=== PATIENT | female | born 1940 | race Caucasian/White ===

== ENCOUNTER → 2017-01-08 | Outpatient (CLI) | payer MEDICARE, BC ==
--- NOTE | 2017-01-08 09:44 | BD ---
EXAMINATION TYPE: MG DEXA axial skeleton. DATE OF EXAM: 01/08/2017 8:44 AM CLINICAL HISTORY: Height: 61.25 Weight: 178 Comparison: Prior DEXA bone scan February 19, 2014 FRAX RISK QUESTIONS: Alcohol (3 or more units per day): no Family History (Parent hip fracture): no Glucocorticoids (More than 3mos): no (Ex: prednisone, prednisolone, methylprednisolone, dexamethasone, and hydrocortisone). History of Fracture in Adulthood: no Secondary Osteoporosis: 1. Type 1 Diabetes: no 2. Hyperthyroidism: no 3. Menopause before 45: yes, total hysterectomy age 38 4. Malnutrition: no 5. Chronic liver disease: no Rheumatoid Arthritis: not rheumatoid Current Tobacco Use: no RISK FACTORS HISTORY OF: History of Fracture: no Family History of Osteoporosis: unsure Drink Alcohol: "twice a year" Active: no Diet low in dairy products/other sources of calcium: NO Postmenopausal woman: yes Take estrogen and/or progesterone medications: not now How long: hormonal contraceptives 6 years, Estrogen about 6 months Lost more than 2 inches in height since high school: unsure, states was perhaps 64 inches tall at one time Frequent falls: no Poor Health: no Hyperparathyroidism: no Adrenal Insufficiency: no MEDICATIONS: Prednisone or other steroids: no Thyroid Medications: yes Which medication: Levothyroxine How Long: about 10 years Osteoporosis Medications: no Additional Medications: heart meds, blood pressures meds, Lipitor EXAM MEASUREMENTS: Bone mineral densitometry was performed using the NORCAT System. Bone mineral density as measured about the Lumbar spine is: ----- L1-L4(G/cm2): 1.297 T Score Values are as follows: ----- L2: 0.3 ----- L3: 1.7 ----- L4: 0.5 ----- L1-L4: 1.0 Bone mineral density has: Increased 3.7% since study of: 02/19/2014 Bone mineral density about the R hip (g/cm2): 0.846 Bone mineral density about the L hip (g/cm2): 0.859 T Score values are as follows: -----R Neck: -1.4 -----L Neck: -1.3 -----R Intertrochanter: -1.5 -----L Intertrochanter: -1.4 Bone mineral density has: Decreased -1.6% since study of: 02/19/2014 IMPRESSION: Osteopenia (T Score between -2.5 and -1 as noted by T score values in the Bilateral Hips is redemons trated. Bone density fairly stable from prior. There is slightly increased risk of fracture and the p atient may be considered for treatment. Re-Screen 1-2 years. NOTE: T-SCORE=SD OF THE YOUNG ADULT MEAN.
--- NOTE | 2017-01-09 07:39 | MM ---
Reason for exam: screening (asymptomatic). Last mammogram was performed 2 years and 4 months ago. History: Patient is postmenopausal. Took hormonal contraceptives for 6 years. Took estrogen for 6 months. Physical Findings: A clinical breast exam by your physician is recommended on an annual basis and results should be correlated with mammographic findings. MG 3D Screening Mammo W/Cad Bilateral CC and MLO view(s) were taken. Prior study comparison: September 08, 2014, right breast MG diagnostic mammo RT w CAD. March 04, 2014, right breast MG work up mamm w CAD RT. There are scattered fibroglandular densities. Finding: There are typically benign round calcifications in the right breast. There is a chronic nodularity in the right axilla. There is no dominant lesion. ASSESSMENT: Benign, BI-RAD 2 RECOMMENDATION: Routine screening mammogram of both breasts in 1 year.
== END | disposition home or self-care (01) ==
LOC: RADMAMWWP 07:49
PROVIDERS: ATTEND Family Medicine
DX: Z12.31 Encounter for screening mammogram for malignant neoplasm of breast (principal); Z13.820 Encounter for screening for osteoporosis; M85.80 Other specified disorders of bone density and structure, unspecified site
CPT/HCPCS: 77080; 77063; G0202

== ENCOUNTER 2017-08-14 10:12 | Inpatient (IN) | payer MEDICARE, BC ==
[2017-08-14 10:43] LABS: Basophils % (A) 0 %; CHCM 33.1; Eosinophils # (A) 0.2 k/uL (0-0.7); Eosinophils % (A) 3 %; HCT 37.5 % (34.0-46.0); HDW 2.49; HGB 12.1 gm/dL (11.4-16.0); Luc # (Auto) 0.07; Luc % (Auto) 1; Lymphocytes # (A) 0.5 k/uL (1.0-4.8); Lymphocytes % (A) 7 %; MCH 28.3 pg (25.0-35.0); MCHC 32.2 g/dL (31.0-37.0); MCV 88.1 fL (80.0-100.0); Mean Platelet Volume 7.7; Monocytes # (A) 0.4 k/uL (0-1.0); Monocytes % (A) 4 %; Neutrophils # (A) 6.9 k/uL (1.3-7.7); Neutrophils % (A) 85 %; RBC 4.26 m/uL (3.80-5.40); RDW 15.5 % (11.5-15.5); WBC 8.2 k/uL (3.8-10.6); WBC (Perox) 8.45
[2017-08-14 10:53] LABS: ALT 50 U/L (9-52); AST 49 U/L (14-36); Alkaline Phosphatase 70 U/L (38-126); Anion Gap 11 mmol/L; Blood Urea Nitrogen 16 mg/dL (7-17); Calcium 8.8 mg/dL (8.4-10.2); Carbon Dioxide 22 mmol/L (22-30); Chloride 99 mmol/L (98-107); Glucose 130 mg/dL (74-99); Magnesium 1.8 mg/dL (1.6-2.3); Non-African American GFR(MDRD) >60 (>60 ml/min/1.73 sqM); Phosphorous 4.4 mg/dL (2.5-4.5); Potassium 4.5 mmol/L (3.5-5.1); Sodium 132 mmol/L (137-145); Total Bilirubin 0.5 mg/dL (0.2-1.3); Total Protein 6.6 g/dL (6.3-8.2)
--- NOTE | 2017-08-14 10:54 | XR ---
EXAMINATION TYPE: XR chest 2V DATE OF EXAM: 08/14/2017 COMPARISON: 01/23/2015 HISTORY: Weakness. TECHNIQUE: Frontal and lateral views of the chest are obtained. FINDINGS: Interlobular septal thickening and interstitial pulmonary edema are seen. Heart is enlarge d. No pleural effusions are evident. Multilevel degenerative changes of thoracic spine and extensive glenohumeral arthropathy are present. IMPRESSION: Moderate interstitial pulmonary edema, likely on the basis of decompensated congestive h eart failure.
[2017-08-14 10:55] LABS: INR 1.1 (<1.2); Partial Thromboplastin Time 22.8 sec (22.0-30.0); Prothrombin Time 10.8 sec (9.0-12.0)
[2017-08-14 11:03] LABS: Creatine Kinase 114 U/L (30-135)
[2017-08-14 11:15] LABS: Troponin I <0.012 ng/mL (0.000-0.034)
[2017-08-14 11:19] LABS: Creatine Kinase MB 3.3 ng/mL (0.0-2.4)
--- NOTE | 2017-08-14 11:27 | ED ---
General Adult HPI - General Chief complaint: Shortness of Breath Stated complaint: Shortness of Breath Time Seen by Provider: 08/14/17 10:17 Source: EMS, RN notes reviewed, old records reviewed Mode of arrival: EMS Limitations: no limitations - History of Present Illness Initial comments: This is a 77-year-old female to the ER for evaluation of significant shortness of breath. Patient is a history of heart disease and asked history of smoking. Patient states he has had significant shortness of breath that began while she was doing some errands this morning. Has persisted to today with no chest pain or shortness of breath. Patient is brought in by EMS and states. Patient denies any travel history, no recent hospitalizations. Patient does admit that this is the worse her breathing has been - Related Data Home Medications Medication Instructions Recorded Confirmed Aspirin 325 mg PO DAILY 01/23/15 08/14/17 Atorvastatin [Lipitor] 40 mg PO DAILY 01/23/15 08/14/17 Levothyroxine Sodium [Synthroid] 137 mcg PO DAILY 01/23/15 08/14/17 Carvedilol [Carvedilol] 25 mg PO BID 08/14/17 08/14/17 Losartan [Cozaar] 25 mg PO BID 08/14/17 08/14/17 Vit A/Vit C/Vit E/Zinc/Copper 1 cap PO BID-W/MEALS@08/14/17 08/14/17 [ICAPS SOFTGEL] Allergies Allergy/AdvReac Type Severity Reaction Status Date / Time Penicillins Allergy Anaphylaxis Verified 08/14/17 10:34 hydralazine AdvReac Nausea & Verified 08/14/17 10:34 Vomiting Review of Systems ROS Statement: Those systems with pertinent positive or pertinent negative responses have been documented in the HPI. ROS Other: All systems not noted in ROS Statement are negative. Past Medical History Past Medical History: Heart Failure, Hypertension, Thyroid Disorder Additional Past Medical History / Comment(s): bundle branch block, 10% function on left side of heart per pt, arrythmia - pt unsure of what type History of Any Multi-Drug Resistant Organisms: None Reported Past Surgical History: Appendectomy, Hysterectomy, Orthopedic Surgery Additional Past Surgical History / Comment(s): fibroid and endometrial surgeries before hyst, sakina cataracts with implants Past Anesthesia/Blood Transfusion Reactions: No Reported Reaction Past Psychological History: No Psychological Hx Reported Smoking Status: Former smoker Past Alcohol Use History: None Reported Past Drug Use History: None Reported - Past Family History Father Family Medical History: Congestive Heart Failure (CHF) General Exam Limitations: no limitations General appearance: alert, in no apparent distress, anxious Head exam: Present: atraumatic, normocephalic, normal inspection Eye exam: Present: normal appearance, PERRL, EOMI. Absent: scleral icterus, conjunctival injection, periorbital swelling ENT exam: Present: normal exam, mucous membranes moist Neck exam: Present: normal inspection. Absent: tenderness, meningismus, lymphadenopathy Respiratory exam: Present: normal lung sounds bilaterally, wheezes, rales, accessory muscle use, decreased breath sounds, prolonged expiratory. Absent: respiratory distress, rhonchi, stridor Cardiovascular Exam: Present: regular rate, normal rhythm, normal heart sounds. Absent: systolic murmur, diastolic murmur, rubs, gallop, clicks GI/Abdominal exam: Present: soft, normal bowel sounds. Absent: distended, tenderness, guarding, rebound, rigid Extremities exam: Present: normal inspection, full ROM, normal capillary refill. Absent: tenderness, pedal edema, joint swelling, calf tenderness Back exam: Present: normal inspection Neurological exam: Present: alert, oriented X3, CN II-XII intact Psychiatric exam: Present: normal affect, normal mood Skin exam: Present: warm, dry, intact, normal color. Absent: rash Course Vital Signs 08/14/17 08/14/17 10:18 10:58 Temperature 98.3 F Pulse Rate 74 62 Respiratory 17 16 Rate Blood Pressure 140/74 122/62 O2 Sat by Pulse 93 L 98 Oximetry - Reevaluation(s) Reevaluation #1: 08/14/17 11:49 Patient is improved after initial breathing treatment, patient has no history of CHF with low ejection fraction, medical record is reviewed EKG Findings - EKG Comments: EKG Findings:: EKG shows sinus rhythm rate of 65, MA 132, QRS 142, QTc 468 Medical Decision Making - Medical Decision Making 77 female in the ER for evaluation of shortness of breath, patient's chest x- ray positive for CHF, edema. Patient also did have improvement with breathing treatments we will continue those. Patient will benefit for diuresis and cardiology evaluation - Lab Data Result diagrams: 08/14/17 10:15 08/14/17 10:15 Lab Results 08/14/17 08/14/17 08/14/17 Range/Units 10:15 10:15 10:15 WBC 8.2 (3.8-10.6) k/uL RBC 4.26 (3.80-5.40) m/uL Hgb 12.1 (11.4-16.0) gm/dL Hct 37.5 (34.0-46.0) % MCV 88.1 (80.0-100.0) fL MCH 28.3 (25.0-35.0) pg MCHC 32.2 (31.0-37.0) g/dL RDW 15.5 (11.5-15.5) % Plt Count 242 (150-450) k/uL Neutrophils % 85 % Lymphocytes % 7 % Monocytes % 4 % Eosinophils % 3 % Basophils % 0 % Neutrophils # 6.9 (1.3-7.7) k/uL Lymphocytes # 0.5 L (1.0-4.8) k/uL Monocytes # 0.4 (0-1.0) k/uL Eosinophils # 0.2 (0-0.7) k/uL Basophils # 0.0 (0-0.2) k/uL PT (9.0-12.0) sec INR (<1.2) APTT (22.0-30.0) sec Sodium 132 L (137-145) mmol/L Potassium 4.5 (3.5-5.1) mmol/L Chloride 99 (98-107) mmol/L Carbon Dioxide 22 (22-30) mmol/L Anion Gap 11 mmol/L BUN 16 (7-17) mg/dL Creatinine 0.62 (0.52-1.04) mg/dL Est GFR (MDRD) Af Amer >60 (>60 ml/min/1.73 sqM) Est GFR (MDRD) Non-Af >60 (>60 ml/min/1.73 sqM) Glucose 130 H (74-99) mg/dL Calcium 8.8 (8.4-10.2) mg/dL Phosphorus 4.4 (2.5-4.5) mg/dL Magnesium 1.8 (1.6-2.3) mg/dL Total Bilirubin 0.5 (0.2-1.3) mg/dL AST 49 H (14-36) U/L ALT 50 (9-52) U/L Alkaline Phosphatase 70 (38-126) U/L Total Creatine Kinase 114 (30-135) U/L CK-MB (CK-2) 3.3 H* (0.0-2.4) ng/mL CK-MB (CK-2) Rel Index 2.9 Troponin I <0.012 (0.000-0.034) ng/mL NT-Pro-B Natriuret Pep pg/mL Total Protein 6.6 (6.3-8.2) g/dL Albumin 3.7 (3.5-5.0) g/dL 08/14/17 08/14/17 Range/Units 10:15 10:15 WBC (3.8-10.6) k/uL RBC (3.80-5.40) m/uL Hgb (11.4-16.0) gm/dL Hct (34.0-46.0) % MCV (80.0-100.0) fL MCH (25.0-35.0) pg MCHC (31.0-37.0) g/dL RDW (11.5-15.5) % Plt Count (150-450) k/uL Neutrophils % % Lymphocytes % % Monocytes % % Eosinophils % % Basophils % % Neutrophils # (1.3-7.7) k/uL Lymphocytes # (1.0-4.8) k/uL Monocytes # (0-1.0) k/uL Eosinophils # (0-0.7) k/uL Basophils # (0-0.2) k/uL PT 10.8 (9.0-12.0) sec INR 1.1 (<1.2) APTT 22.8 (22.0-30.0) sec Sodium (137-145) mmol/L Potassium (3.5-5.1) mmol/L Chloride (98-107) mmol/L Carbon Dioxide (22-30) mmol/L Anion Gap mmol/L BUN (7-17) mg/dL Creatinine (0.52-1.04) mg/dL Est GFR (MDRD) Af Amer (>60 ml/min/1.73 sqM) Est GFR (MDRD) Non-Af (>60 ml/min/1.73 sqM) Glucose (74-99) mg/dL Calcium (8.4-10.2) mg/dL Phosphorus (2.5-4.5) mg/dL Magnesium (1.6-2.3) mg/dL Total Bilirubin (0.2-1.3) mg/dL AST (14-36) U/L ALT (9-52) U/L Alkaline Phosphatase (38-126) U/L Total Creatine Kinase (30-135) U/L CK-MB (CK-2) (0.0-2.4) ng/mL CK-MB (CK-2) Rel Index Troponin I (0.000-0.034) ng/mL NT-Pro-B Natriuret Pep 2080 pg/mL Total Protein (6.3-8.2) g/dL Albumin (3.5-5.0) g/dL - Radiology Data Radiology results: report reviewed (Chest x-ray is positive for CHF), image reviewed Disposition Clinical Impression: Congestive heart failure, Acute pulmonary edema, Acute exacerbation of chronic obstructive airways disease Disposition: ADMITTED IP TO THIS HOSP Condition: Fair Referrals: Johanne Anthony DO [Primary Care Provider] - 1-2 days
[2017-08-14] MEDS: FUROSEMIDE 10 MG/ML 4 ML VIAL IV SCH ×2 (13:34→21:14)
[2017-08-14] MEDS: CARVEDILOL 3.125 MG TAB PO SCH (17:12)
[2017-08-14] MEDS: VIT A,C & E-LUTEIN-MINERALS 1 EACH TAB PO SCH (17:12)
[2017-08-14] MEDS ORDERED: HEPARIN SODIUM,PORCINE 5,000 UNIT/ML 1 ML VIAL SQ SCH (21:00)
[2017-08-14 21:08] LABS: Appearance,Urine Clear (Clear); Bilirubin,Urine Negative (Negative); Glucose,Urine (UA) Negative (Negative); Ketones,Urine Negative (Negative); Leukocyte Esterase,Urine Negative (Negative); Nitrite,Urine Negative (Negative); PH, Urine 6.5 (5.0-8.0); Protein,Urine Negative (Negative); Specific Gravity,Urine 1.009 (1.001-1.035); UA Billing (MACRO vs. MICRO) CHEM; Urobilinogen,Urine <2.0 mg/dL (<2.0)
--- NOTE | 2017-08-14 23:07 | P.HPIM ---
History of Present Illness H&P Date: 08/14/17 Chief Complaint: Shortness of breath Patient is a 77-year-old female with a known history of hypertension, hypothyroidism and nonischemic cardiomyopathy ejection fraction 35% and history of cardiac catheterization who follows with Dr. Gonzales as an outpatient came to ER with complaints of worsening short of breath and weight gain for the past 2 to 3 days. Patient's short of breath got worse and this morning and was brought to the hospital by EMS. Patient denied any chest pain. No nausea vomiting abdominal pain. Patient says that she had echocardiogram done a few months back. Patient denied any nausea vomiting or abdominal pain. Denied any recent illnesses. No recent travel. Chest x-ray showed moderate pulmonary edema. EKG showed sinus rhythm with occasional PVCs. Review of Systems Constitutional: Patient denies any fever or chills . No generalized weakness or weight loss. Patient does have weight gain Abdomen: Patient denied nausea vomiting and diarrhea and abdominal pain. Cardiovascular: Patient denied any chest pain. Patient does have shortness of breath and orthopnea. Respiratory: patient denied any cough is from production. Neurologic: Patient denied any numbness or tingling headache. Musculoskeletal: Patient denies any complaints of joint swelling or deformity. Skin: Negative Psychiatric: Negative Endocrine: No heat or cold intolerance. No recent weight gain. Genitourinary: No dysuria or hematuria. All other 14 point ROS negative except the above Past Medical History Past Medical History: Heart Failure, Eye Disorder, Hyperlipidemia, Hypertension , Osteoarthritis (OA), Thyroid Disorder Additional Past Medical History / Comment(s): Nonischemic cardiomyopathy, bundle branch block, arthritis especially in bilateral knees, macular degeneration bilaterally, hypothyroid. History of Any Multi-Drug Resistant Organisms: None Reported Past Surgical History: Appendectomy, Heart Catheterization, Hysterectomy, Orthopedic Surgery Additional Past Surgical History / Comment(s): D&C/endometrial surgery for fibroids then total hysterectomy, bilateral cataract removal with lens implants , colonoscopy-normal, L knee arthroscopic surgery for tendon repair. Past Anesthesia/Blood Transfusion Reactions: No Reported Reaction Smoking Status: Former smoker - Past Family History Mother Family Medical History: Cancer Additional Family Medical History / Comment(s): Mother of colon cancer at the age of 58yrs. Father Family Medical History: Congestive Heart Failure (CHF), Hypertension Additional Family Medical History / Comment(s): Father had an enlarged heart. He of a CVA at the age of 72 yrs. Medications and Allergies Home Medications Medication Instructions Recorded Confirmed Type Aspirin 325 mg PO DAILY 01/23/15 08/14/17 History Atorvastatin [Lipitor] 40 mg PO DAILY 01/23/15 08/14/17 History Levothyroxine Sodium [Synthroid] 137 mcg PO DAILY 01/23/15 08/14/17 History Carvedilol [Carvedilol] 25 mg PO BID 08/14/17 08/14/17 History Losartan [Cozaar] 25 mg PO BID 08/14/17 08/14/17 History Vit A/Vit C/Vit E/Zinc/Copper 1 cap PO BID-W/MEALS@08/14/17 08/14/17 History [ICAPS SOFTGEL] Allergies Allergy/AdvReac Type Severity Reaction Status Date / Time Penicillins Allergy Anaphylaxis Verified 08/14/17 10:34 hydralazine AdvReac Nausea & Verified 08/14/17 10:34 Vomiting Physical Exam Vitals: Vital Signs Temp Pulse Pulse Resp BP BP Pulse Ox 08/14/17 16:00 98.4 F 74 20 136/77 98 08/14/17 12:17 98.4 F 64 16 118/66 99 08/14/17 10:58 62 16 122/62 98 08/14/17 10:18 98.3 F 74 17 140/74 93 L Intake and Output 08/14/17 08/14/17 08/14/17 06:59 14:59 22:59 Intake Total 240 Output Total 250 Balance 240 -250 Intake: Oral 240 Output: Urine 250 Other: # Voids 1 Weight 81.6 kg Patient Weight 08/15/17 06:59 Weight 81.6 kg PHYSICAL EXAMINATION: Patient is lying in the bed comfortably, no acute distress, awake alert and oriented.. HEENT: Normocephalic. Neck is supple. Pupils reactive. Nostrils clear. Oral cavity is moist. Ears reveal no drainage. Neck reveals no JVD, carotid bruits, or thyromegaly. CHEST EXAMINATION: Trachea is central. Symmetrical expansion. Bilateral basal crackles positive CARDIAC: Normal S1, S2 with no gallops. No murmurs ABDOMEN: Soft. Bowel sounds normal. No organomegaly. No abdominal bruits. Extremities: 1+ edema. No clubbing or cyanosis Neurologically awake, alert, oriented x3 with well-coordinated movements. No focal deficits noted Skin: No rash or skin lesions. Psychiatric: Operative. Nonsuicidal Musculoskeletal: No joint swelling or deformity. Normal range of motion. Results CBC & Chem 7: 08/14/17 10:15 08/14/17 10:15 Labs: Abnormal Lab Results - Last 24 Hours (Table) 08/14/17 08/14/17 08/14/17 Range/Units 10:15 10:15 10:15 Lymphocytes # 0.5 L (1.0-4.8) k/uL Sodium 132 L (137-145) mmol/L Glucose 130 H (74-99) mg/dL AST 49 H (14-36) U/L CK-MB (CK-2) 3.3 H* (0.0-2.4) ng/mL Thrombosis Risk Factor Assmnt - DVT/VTE Prophylaxis DVT/VTE Prophylaxis: Pharmacologic Prophylaxis ordered - Choose All That Apply Any of the Below Risk Factors Present?: Yes Each Factor Represents 1 point: Heart failure (<1month), Obesity (BMI >25) Other Risk Factors: Yes Each Risk Factor Represents 3 Points: Age 75 years or older Other congenital or acquired thrombophilia - If yes, enter type in comment: No Thrombosis Risk Factor Assessment Total Risk Factor Score: 5 Thrombosis Risk Factor Assessment Level: High Risk Assessment and Plan Assessment: #1 acute on chronic CHF with systolic dysfunction ejection fraction 35% #2 nonischemic cardiomyopathy with history of catheterization 10 years ago #3 hypertension #4 hypothyroidism #5 history of left bundle branch block Plan: Patient will be continued on IV Lasix and continue to monitor renal function. We'll check TSH level. We will continue with Coreg and losartan with reduced dose due to low blood pressure. Continue with aspirin and statins. Cardiology was consulted. Telemetry monitoring. Further recommendations based on the clinical course. Time with Patient: Greater than 30
[2017-08-15] MEDS: FUROSEMIDE 10 MG/ML 4 ML VIAL IV SCH ×3 (04:22→20:16)
[2017-08-15 06:34] LABS: Basophils % (A) 1 %; CH 28.1; CHCM 32.2; Eosinophils # (A) 0.3 k/uL (0-0.7); Eosinophils % (A) 5 %; HCT 38.1 % (34.0-46.0); HDW 2.45; HGB 12.1 gm/dL (11.4-16.0); Luc # (Auto) 0.09; Luc % (Auto) 2; Lymphocytes # (A) 0.7 k/uL (1.0-4.8); Lymphocytes % (A) 13 %; MCH 27.8 pg (25.0-35.0); MCHC 31.7 g/dL (31.0-37.0); MCV 87.6 fL (80.0-100.0); Mean Platelet Volume 6.7; Monocytes # (A) 0.4 k/uL (0-1.0); Monocytes % (A) 8 %; Neutrophils # (A) 3.6 k/uL (1.3-7.7); Neutrophils % (A) 72 %; RBC 4.35 m/uL (3.80-5.40); RDW 14.4 % (11.5-15.5); WBC 5.1 k/uL (3.8-10.6); WBC (Perox) 4.96
[2017-08-15] MEDS: CARVEDILOL 3.125 MG TAB PO SCH ×2 (06:46→17:45)
[2017-08-15] MEDS: LEVOTHYROXINE 137 MCG TAB PO SCH (06:46)
[2017-08-15 06:52] LABS: Anion Gap 9 mmol/L; Blood Urea Nitrogen 15 mg/dL (7-17); Carbon Dioxide 29 mmol/L (22-30); Chloride 97 mmol/L (98-107); Glucose 106 mg/dL (74-99); Non-African American GFR(MDRD) >60 (>60 ml/min/1.73 sqM); Potassium 3.7 mmol/L (3.5-5.1); Sodium 135 mmol/L (137-145)
[2017-08-15] MEDS: LOSARTAN 25 MG TAB PO SCH (09:12)
[2017-08-15] MEDS: ATORVASTATIN 40 MG TAB PO SCH (09:12)
[2017-08-15] MEDS: ASPIRIN 325 MG TAB PO SCH (09:12)
[2017-08-15] MEDS: ENOXAPARIN 40 MG/0.4 ML SYRINGE SQ SCH (09:13)
[2017-08-15] MEDS: VIT A,C & E-LUTEIN-MINERALS 1 EACH TAB PO SCH ×2 (12:31→17:45)
[2017-08-15 14:42] VITALS: BMI 34.2
--- NOTE | 2017-08-15 15:25 | P.PN ---
Subjective Progress Note Date: 08/15/17 Progress Note being dictated for Dr. Matute Interval history:Patient is a 77-year-old female with a known history of hypertension, hypothyroidism and nonischemic cardiomyopathy ejection fraction 35 % and history of cardiac catheterization who follows with Dr. Gonzales as an outpatient came to ER with complaints of worsening short of breath and weight gain for the past 2 to 3 days. Patient's short of breath got worse and this morning and was brought to the hospital by EMS. Patient denied any chest pain. No nausea vomiting abdominal pain. Patient says that she had echocardiogram done a few months back. Patient denied any nausea vomiting or abdominal pain. Denied any recent illnesses. No recent travel. Chest x-ray showed moderate pulmonary edema. EKG showed sinus rhythm with occasional PVCs. 08/15/2017. Breathing continues to improve, IV push Lasix weaned down to every 12 hours. Diuresing well with 24-hour I&O reflecting a negative fluid balance. Telemetry sinus rhythm. Denies chest pain, palpitations or increasing shortness of breath. Objective - Vital Signs Vital signs: Vital Signs Temp 96.6 F L 08/15/17 12:00 Pulse 70 08/15/17 12:00 Resp 18 08/15/17 12:00 BP 134/77 08/15/17 12:00 Pulse Ox 96 08/15/17 12:00 Intake & Output 08/14/17 08/15/17 08/15/17 18:59 06:59 18:59 Intake Total 240 300 Output Total 250 1400 Balance -10 -1400 300 Weight 81.6 kg 82.3 kg 82.3 kg Intake: Oral 240 300 Output: Urine 250 1400 Other: Voiding Method Toilet # Voids 1 2 # Bowel Movements 1 - Exam Patient is lying in the bed comfortably, no acute distress, awake alert and oriented.. HEENT: Normocephalic. Neck is supple. Pupils reactive. Nostrils clear. Oral cavity is moist. Ears reveal no drainage. Neck reveals no JVD, carotid bruits, or thyromegaly. CHEST EXAMINATION: Trachea is central. Symmetrical expansion. Bilateral basal crackles positive CARDIAC: Normal S1, S2 with no gallops. No murmurs ABDOMEN: Soft. Bowel sounds normal. No organomegaly. No abdominal bruits. Extremities: 1+ edema. No clubbing or cyanosis Neurologically awake, alert, oriented x3 with well-coordinated movements. No focal deficits noted Skin: No rash or skin lesions. Psychiatric: Operative. Nonsuicidal Musculoskeletal: No joint swelling or deformity. Normal range of motion. - Labs CBC & Chem 7: 08/15/17 06:06 08/15/17 06:06 Labs: Abnormal Lab Results - Last 24 Hours (Table) 08/15/17 08/15/17 Range/Units 06:06 06:06 Lymphocytes # 0.7 L (1.0-4.8) k/uL Sodium 135 L (137-145) mmol/L Chloride 97 L (98-107) mmol/L Glucose 106 H (74-99) mg/dL Microbiology - Last 24 Hours (Table) 08/14/17 21:00 Urine Culture - Preliminary Urine,Voided Assessment and Plan Plan: #1 acute on chronic CHF with systolic dysfunction ejection fraction 35% #2 nonischemic cardiomyopathy with history of catheterization 10 years ago #3 hypertension #4 hypothyroidism #5 history of left bundle branch block Plan: Continue on current medication regime , losartan, Coreg, statin, aspirin monitoring and symptomatic treatment. Breathing significantly improved, IV push Lasix frequency decreased. Maintain CHF pathway/strict I&O's. Increase ambulation as tolerated with assistance. The impression and plan of care has been dictated as directed. : I performed a history and examination of this patient, discussed the same with the dictator. I agree with the dictator's note ,documented as a scribe. Any additional findings or plans will be noted.
[2017-08-15 16:28] VITALS: RESP 16
--- NOTE | 2017-08-15 16:41 | CONS ---
CONSULTATION HISTORY OF PRESENT ILLNESS: Mrs. Pérez is a 77-year-old female, who is seen for cardiac evaluation. The patient's medical records reviewed. This patient has a history of hypertension, hyperthyroidism and nonischemic cardiomyopathy. Previous echocardiogram has showed ejection fraction of 35%. The patient came with worsening shortness of breath for a couple of days and her chest x-ray was suggestive of congestive heart failure. The patient is doing better now. She is feeling better. Denied any fever or chills. Denies any cough with expectoration. PAST MEDICAL HISTORY: Includes nonischemic cardiomyopathy, bundle branch block. Arthritis in both knees. Prior appendectomy, hysterectomy, orthopedic surgery and cardiac catheterization. HOME MEDICATIONS: Include Coreg, Cozaar, Synthroid and Lipitor. ALLERGIES: None known of. PHYSICAL EXAM: MMODL / IJN: [id number] /
--- NOTE | 2017-08-15 16:56 | CONS ---
CONSULTATION Continuation: PHYSICAL EXAMINATION: Reveals a 77-year-old female, who does not appear to be in any acute distress. Patient was afebrile. Blood pressure was 118/66 mmHg. Oxygen saturation is 93%. HEENT examination is negative. NECK: Supple. There is no increase in jugular venous pressure. Both the carotid pulses are felt. There is no bruit. Chest is symmetrical. Heart the PMI is not felt. First and second heart sounds are normal. The lungs examination revealed a few basilar rales. ABDOMEN: Soft. Extremities peripheral pulses are 1+. Chest x-ray suggestive of congestive cardiac failure. The patient's electrolytes are normal. Creatinine is 0.69. Initial BNP level was 2080. The patient had mild elevation in the troponin 0.015 and 0.014. IMPRESSION: 1. This patient presented with acute on chronic systolic heart failure responding to the IV Lasix. 2. Hypertension. 3. Diabetes. EKG shows an intraventricular conduction delay. RECOMMENDATIONS: We will continue the patient on IV Lasix and repeat the chest x-ray tomorrow. Echocardiogram may be repeated. If patient's systolic function less than 35% the patient can be considered for Bi V ICD placement. MMODL / IJN: [id number] /
[2017-08-16] MEDS: LEVOTHYROXINE 137 MCG TAB PO SCH (06:10)
[2017-08-16] MEDS: CARVEDILOL 3.125 MG TAB PO SCH (08:01)
[2017-08-16] MEDS: LOSARTAN 25 MG TAB PO SCH (08:02)
[2017-08-16] MEDS: ATORVASTATIN 40 MG TAB PO SCH (08:02)
[2017-08-16] MEDS: FUROSEMIDE 10 MG/ML 4 ML VIAL IV SCH (08:02)
[2017-08-16] MEDS: ENOXAPARIN 40 MG/0.4 ML SYRINGE SQ SCH (08:02)
[2017-08-16] MEDS: ASPIRIN 325 MG TAB PO SCH (08:02)
[2017-08-16 08:39] VITALS: BP 156/83; PULSE 67; TEMP 97.6
--- NOTE | 2017-08-16 11:28 | ECHOF ---
Referral Reason:chf MEASUREMENTS -------- HEIGHT: 154.9 cm WEIGHT: 82.1 kg BP: 130/74 RVIDd: 2.9 cm (< 3.3) IVSd: 1.3 cm (0.6 - 1.1) LVIDd: 5.1 cm (3.9 - 5.3) LVPWd: 1.2 cm (0.6 - 1.1) IVSs: 1.5 cm LVIDs: 4.6 cm LVPWs: 1.9 cm LA Diam: 4.0 cm (2.7 - 3.8) LAESV Index (A-L): 21.02 ml/m Ao Diam: 3.2 cm (2.0 - 3.7) AV Cusp: 2.2 cm (1.5 - 2.6) MV EXCURSION: 15.857 mm (> 18.000) MV EF SLOPE: 49 mm/s (70 - 150) EPSS: 3.1 cm MV E [place]: 0.93 m/s MV DecT: 210 ms MV A [place]: 1.39 m/s MV E/A Ratio: 0.67 RAP: 5.00 mmHg RVSP: 30.27 mmHg FINDINGS -------- Sinus rhythm. This was a technically good study. The left ventricular size is normal. There is mild concentric left ventricular hypertrophy. Overall left ventricular systolic function is severely impaired with, an EF < 20%. The right ventricle is normal in size. Normal LA size by volume 22+/-6 ml/m2. The right atrium is normal in size. The aortic valve is trileaflet and appears structurally normal. The mitral valve leaflets are mildly thickened. Mild mitral annular calcification present. Mild mitral regurgitation is present. Mild tricuspid regurgitation present. Right ventricular systolic pressure is normal at < 35 mmHg. There is no pulmonic regurgitation present. The aortic root size is normal. Normal inferior vena cava with normal inspiratory collapse consistent with estimated right atrial pressure of 5 mmHg. There is no pericardial effusion. CONCLUSIONS -------- 1. Sinus rhythm. 2. The mitral valve leaflets are mildly thickened. 3. Mild mitral annular calcification present. 4. Mild mitral regurgitation is present. 5. Mild tricuspid regurgitation present. 6. Right ventricular systolic pressure is normal at < 35 mmHg. 7. There is no pulmonic regurgitation present. 8. The aortic root size is normal. 9. Normal inferior vena cava with normal inspiratory collapse consistent with estimated right atrial pressure of 5 mmHg. 10. There is no pericardial effusion. 11. This was a technically good study. 12. The left ventricular size is normal. 13. There is mild concentric left ventricular hypertrophy. 14. Overall left ventricular systolic function is severely impaired with, an EF < 20%. 15. The right ventricle is normal in size. 16. Normal LA size by volume 22+/-6 ml/m2. 17. The right atrium is normal in size. 18. The aortic valve is trileaflet and appears structurally normal. RUBBER VULCANIZING MACHINE OPERATOR: Taryn Soria RDCS
--- NOTE | 2017-08-16 11:52 | XR ---
EXAMINATION TYPE: XR chest 2V DATE OF EXAM: 08/16/2017 COMPARISON: NONE TECHNIQUE: PA and lateral views submitted. HISTORY: Abnormal x-ray FINDINGS: The lungs are clear and there is no pneumothorax, pleural effusion, or focal pneumonia. Arthropathy of the shoulders. Atherosclerotic change aorta. Hypertrophic and degenerative change of the spine. H yperinflation suggests COPD. Subsegmental consolidation medial aspect right lung base likely represen ts pleural reflection IMPRESSION: 1. COPD with improving interstitial pattern and no overt failure on today's exam.
[2017-08-16] MEDS: VIT A,C & E-LUTEIN-MINERALS 1 EACH TAB PO SCH (12:21)
[2017-08-16] MEDS ORDERED: SPIRONOLACTONE 25 MG TAB PO SCH (13:15)
--- NOTE | 2017-08-16 13:27 | P.PN ---
Subjective Progress Note Date: 08/16/17 Mrs Small is a very pleasant 77 year old female that follows with Dr. Leger as an outpatient. She has known history of non-ischemic cardiomyopathy with EF 35%. She states she hasn't had an exacerbation in over 12 years. Echo performed on this admission reveals decreasing overall systolic function with EF less than 20%. Repeat chest xray this morning reveals COPD with improving interstitial pattern and no overt heart failure. Upon exam she is seen sitting up at the bedside in no acute distress. She is alert and oriented, denies shortness of breath, chest pain, palpitations or dizziness. She states she is feeling much better an is ready to go home. Objective - Vital Signs Vital signs: Vital Signs Temp 97.6 F 08/16/17 07:00 Pulse 67 08/16/17 07:00 Resp 16 08/16/17 07:46 BP 156/83 08/16/17 07:00 Pulse Ox 97 08/16/17 07:00 Intake & Output 08/15/17 08/16/17 08/16/17 18:59 06:59 18:59 Intake Total 760 10 Balance 760 10 Weight 82.3 kg 81 kg Intake: IV 10 10 0.9%NS FLUSH 10 10 Oral 750 Other: Voiding Method Toilet Toilet # Voids 2 # Bowel Movements 1 - Exam GENERAL: Well-appearing, well-nourished and in no acute distress. NECK: Supple without JVD or thyromegaly. LUNGS: Breath sounds clear to auscultation bilaterally. Respiration equal and unlabored. No wheezes, rales or rhonchi. HEART: Regular rate and rhythm without murmurs, rubs or gallops. S1 and S2 heard. EXTREMITIES: Normal range of motion, no edema. No clubbing or cyanosis. Peripheral pulses intact and strong. - Labs CBC & Chem 7: 08/15/17 06:06 08/15/17 06:06 Labs: Microbiology - Last 24 Hours (Table) 08/14/17 21:00 Urine Culture - Final Urine,Voided Assessment and Plan Assessment: ASSESSMENT 1. Acute on chronic heart failure with worsening systolic dysfunction, EF less than 20% 2. Nonischemic cardiomyopathy 3. Essential hypertension 4. Hypothyroidism 5. Obesity PLAN From cardiac perspective the patients breathing has greatly improved since admission. We have added spironalactone 25 mg daily to her daily regimen to optimize her medical therapy in light of worsening systolic function. She should also go home on oral lasix until her follow up with Dr. Leger in 2- 4 weeks. At that time possible AICD can be discussed and determined. Continue losartan, carvedilol, lipitor and asa as previously ordered. Nurse Practitioner note has been reviewed, I agree with a documented findings and plan of care. Patient was seen and examined.
--- NOTE | 2017-08-16 15:55 | P.DS ---
Providers Date of admission: 08/14/17 11:48 Expected date of discharge: 08/16/17 Attending physician: Kris Matute Consults: 08/14/17 11:47 Consult Physician Routine Consulting Provider: David Guerrero Consult Reason/Comments: chf Do you want consulting provider notified?: Yes Primary care physician: Johanne Anthony Hospital Course: Final Diagnoses: #1 acute on chronic CHF with systolic dysfunction ejection fraction 35%, repeat echo this admission reporting EF less than 20%. #2 nonischemic cardiomyopathy with history of catheterization 10 years ago #3 hypertension #4 hypothyroidism #5 history of left bundle branch block Hospital course:Patient is a 77-year-old female admitted with acute on chronic CHF with a known history of hypertension, hypothyroidism and nonischemic cardiomyopathy and multiple other medical issues.Chest x-ray showed moderate pulmonary edema. EKG showed sinus rhythm with occasional PVCs. Repeat echo this admission reporting less than 20%. Evaluated by cardiology. Diuresed on Lasix IV push. Aldactone added to med regime. significant clinical improvement. Patient has been cleared for cardiology for discharge. Patient will follow-up with cardiology and discuss potential AICD. Patient is being discharged home in a stable condition with guarded prognosis. The impression and plan of care has been dictated as directed. : I performed a history and examination of this patient, discussed the same with the dictator. I agree with the dictator's note ,documented as a scribe. Any additional findings or plans will be noted. Patient Condition at Discharge: Stable Plan - Discharge Summary Discharge Rx Participant: Yes New Discharge Prescriptions: New Spironolactone [Aldactone] 25 mg PO DAILY #30 tab Furosemide [Lasix] 40 mg PO DAILY #30 tab Carvedilol [Coreg] 3.125 mg PO BID-W/MEALS #60 tab Continue Levothyroxine Sodium [Synthroid] 137 mcg PO DAILY Atorvastatin [Lipitor] 40 mg PO DAILY Aspirin 325 mg PO DAILY Vit A/Vit C/Vit E/Zinc/Copper [ICAPS SOFTGEL] 1 cap PO BID-W/MEALS@,18 Changed Losartan [Cozaar] 25 mg PO DAILY #0 Discontinued Carvedilol 25 mg PO BID Discharge Medication List Aspirin 325 mg PO DAILY 01/23/15 [History] Atorvastatin [Lipitor] 40 mg PO DAILY 01/23/15 [History] Levothyroxine Sodium [Synthroid] 137 mcg PO DAILY 01/23/15 [History] Vit A/Vit C/Vit E/Zinc/Copper [ICAPS SOFTGEL] 1 cap PO BID-W/MEALS@12,18 [History] Carvedilol [Coreg] 3.125 mg PO BID-W/MEALS #60 tab 08/16/17 [Rx] Furosemide [Lasix] 40 mg PO DAILY #30 tab 08/16/17 [Rx] Losartan [Cozaar] 25 mg PO DAILY #0 08/16/17 [Rx] Spironolactone [Aldactone] 25 mg PO DAILY #30 tab 08/16/17 [Rx] Follow up Appointment(s)/Referral(s): Johanne Anthony DO [Primary Care Provider] - 3 Days Jazmyne Leger MD [STAFF PHYSICIAN] - 2 Weeks Ambulatory/Diagnostic Orders: Complete Blood Count w/diff [LAB.AMB] Time Frame: 3 Days, Location: Determined By Patient Patient Instructions/Handouts: Heart Failure (ED) Activity/Diet/Wound Care/Special Instructions: Diet: CHF DIET, MAURICE Activity: Limited until follow up Discharge Disposition: HOME WITH HOME HEALTH SERVICES
[2017-08-17] MEDS ORDERED: FUROSEMIDE 40 MG TAB PO SCH (09:00)
== END 2017-08-16 14:45 | disposition home or self-care (01) | DRG 292 ==
LOC: EC 10:12 → 6SEL 11:48 → 5MS5E 08-16 00:33
PROVIDERS: ADMIT Hospitalist; ATTEND Hospitalist
DX: I11.0 Hypertensive heart disease with heart failure (principal); J44.1 Chronic obstructive pulmonary disease with (acute) exacerbation; I42.9 Cardiomyopathy, unspecified; E11.9 Type 2 diabetes mellitus without complications; I45.9 Conduction disorder, unspecified; I44.7 Left bundle-branch block, unspecified; I50.23 Acute on chronic systolic (congestive) heart failure; E03.9 Hypothyroidism, unspecified; E66.9 Obesity, unspecified; E78.5 Hyperlipidemia, unspecified; M17.0 Bilateral primary osteoarthritis of knee; H35.30 Unspecified macular degeneration; Z68.33 Body mass index [BMI] 33.0-33.9, adult; Z79.82 Long term (current) use of aspirin; Z79.899 Other long term (current) drug therapy; Z71.3 Dietary counseling and surveillance; Z90.710 Acquired absence of both cervix and uterus; Z90.49 Acquired absence of other specified parts of digestive tract; Z98.42 Cataract extraction status, left eye; Z98.41 Cataract extraction status, right eye; Z96.1 Presence of intraocular lens; Z87.891 Personal history of nicotine dependence; Z88.0 Allergy status to penicillin; Z88.8 Allergy status to other drugs, medicaments and biological substances; Z82.49 Family history of ischemic heart disease and other diseases of the circulatory system
CPT/HCPCS: 36415; 71020; 80048; 80053; 81003; 82550; 82553; 83735; 83880; 84100; 84443; 84484; 85025; 85610; 85730; 87086; 93005; 93306; 94760; 99285

== ENCOUNTER 2017-11-26 07:55 | Day surgery (SDC) | payer MEDICARE, BC ==
[2017-11-22 14:23] VITALS: BMI 31.1
[~2017-11-26 07:55] MED LIST: ALPRAZolam 0.25 MG TAB PO PRN; ALPRAZolam 0.5 MG TAB PO PRN; ASPIRIN 325 MG TAB PO STA; NITROGLYCERIN SL TABS 0.4 MG TAB SUBLINGUAL PRN; SODIUM CHLORIDE 0.9% 1,000 ML in EMPTY BAG 1 BAG IV ONE
[2017-11-26 08:16] VITALS: TEMP 97.7
[2017-11-26] MEDS ORDERED: fentaNYL (PF) 50 MCG/ML 2 ML AMP ONE (08:46)
[2017-11-26] MEDS ORDERED: fentaNYL (PF) 50 MCG/ML 2 ML AMP IVP ONE (08:56)
[2017-11-26] MEDS ORDERED: LIDOCAINE 2% INJ 20 MG/ML SQ ONE (08:58)
[2017-11-26] MEDS ORDERED: MIDAZOLAM 2 MG/2 ML VIAL ONE (09:00)
[2017-11-26] MEDS ORDERED: MIDAZOLAM 2 MG/2 ML VIAL IVP ONE (09:01)
[2017-11-26] MEDS ORDERED: IOHEXOL 350 MG/ML 125ML BOTTLE INJ ONE (09:24)
[2017-11-26] MEDS ORDERED: RX INFO: IV CONTRAST WAS GIVEN 1 EACH MISC MISCELLANE PRN (09:31)
--- NOTE | 2017-11-26 09:39 | P.PCN ---
Date of Procedure: 11/26/17 Preoperative Diagnosis: Cardiomyopathy, CHF, history of of coronary artery disease Postoperative Diagnosis: Stable coronary artery disease with a diffuse calcification and plaque with a moderate disease in the mid LAD and mild to moderate disease in the diagonal and proximal RCA Description of Procedure: HISTORY: This is a 77-year-old female with history of of known mild to moderate coronary artery disease, cardiomyopathy who has developed CHF and further deterioration in LV function. Patient is advised to have left heart catheterization to rule out underlying ischemic heart disease. If there is no significant CAD, patient will be advised to have biventricular pacemaker with AICD. CONSENT:I have discussed the risks, benefits and alternative therapies for the above-mentioned procedure and for both sedation/analgesia as well as necessary blood product administration, if indicated, as they pertain to this patient. The patient has indicated understanding and acceptance of the risks and procedures discussed. PROCEDURE: Patient was brought to the lab in a fasting state. Patient was given some IV sedation. The right groin is infiltrated with lidocaine and right femoral artery was entered using Seldinger technique. A 6-Setswana catheter was left in place and selective coronary arteriography and left ventriculography was performed. Patient tolerated the procedure well. Femoral angiogram was performed and Angio-Seal was applied for hemostasis. No immediate complications were noted and patient was transferred to [facility] in a stable condition Conscious Sedation: Versed 0.5 mg Fentanyl 50 g Duration 17minutes HEMODYNAMICS: The aortic pressure was about 130/70. Left ankle end-diastolic pressure is about 12-16. There was no gradient across the aortic valve SELECTIVE CORONARY ARTERIOGRAPHY: LEFT MAIN: This is a short and divides into LAD and circumflex immediately. There is calcification of left main but no obstructive disease THE LEFT ANTERIOR DESCENDING CORONARY ARTERY:. This is a good caliber vessel giving rise to good-sized first diagonal branch. The LAD has diffuse calcification and plaque with an area of about 50-60% lesion in the midportion and mild disease involving the diagonal. THE LEFT CIRCUMFLEX AND IS CORONARY ARTERY: This is a good caliber vessel giving rise to good-sized OM branch. It is also calcified diffusely with mild plaque without any significant focal disease area did THE RIGHT CORONARY ARTERY: This is a good caliber vessel with a diffuse plaque throughout its length. There is about 30% stenosis in the proximal portion which has been stable compared to the 2005 study. No critical lesions are noted LEFT VENTRICULOGRAPHY:. Not performed FINAL IMPRESSION: Stable but diffuse coronary artery disease with calcification and diffuse plaque. Stable 50-60% lesion in mid LAD and mild disease in the diagonal and proximal RCA PLAN: Maximum medical therapy. Proceed with a biventricular pacemaker and AICD PROGNOSIS: Guarded
[2017-11-26] MEDS ORDERED: SODIUM CHLORIDE 0.9% 1,000 ML IV SCH (09:45)
[2017-11-26 13:35] VITALS: BP 128/66; PULSE 82; RESP 20
== END 2017-11-26 14:26 | disposition home or self-care (01) ==
LOC: CATHCVL 07:55
PROVIDERS: ATTEND Internal Medicine Cardiovascular Disease
DX: I25.10 Atherosclerotic heart disease of native coronary artery without angina pectoris (principal); I25.84 Coronary atherosclerosis due to calcified coronary lesion; I25.5 Ischemic cardiomyopathy; E78.00 Pure hypercholesterolemia, unspecified; I50.22 Chronic systolic (congestive) heart failure; E03.9 Hypothyroidism, unspecified; I11.0 Hypertensive heart disease with heart failure; E66.3 Overweight; E78.5 Hyperlipidemia, unspecified; Z68.30 Body mass index [BMI] 30.0-30.9, adult; Z79.82 Long term (current) use of aspirin; Z79.899 Other long term (current) drug therapy; Z88.0 Allergy status to penicillin; Z88.8 Allergy status to other drugs, medicaments and biological substances; Z87.891 Personal history of nicotine dependence
CPT/HCPCS: 93458; C1760; C1894; C1769; J2001; J2250; J3010; Q9967

== ENCOUNTER 2017-12-17 05:49 | Day surgery (SDC) | payer MEDICARE, BC ==
[2017-12-13 08:37] VITALS: BMI 32.1
[2017-12-17] MEDS ORDERED: CLINDAMYCIN 900 MG in DEXTROSE 5% IN WATER 50 ML IVPB ONE ×2 (05:51)
[2017-12-17] MEDS ORDERED: CLINDAMYCIN 600 MG in SODIUM CHLORIDE 0.9% IRRIGATIO 250 ML IRRIGATION ONE (05:51)
[2017-12-17] MEDS: SODIUM CHLORIDE 0.9% 1,000 ML IV SCH (06:37)
[2017-12-17] MEDS ORDERED: fentaNYL (PF) 50 MCG/ML 2 ML AMP ONE (08:15)
[2017-12-17] MEDS ORDERED: MIDAZOLAM 2 MG/2 ML VIAL ONE (08:15)
[2017-12-17] MEDS ORDERED: PROPOFOL 10 MG/ML 20 ML VIAL IV ONE (08:15)
[2017-12-17] MEDS ORDERED: LIDOCAINE 1% INJ 10MG/ML (20 ML MDV) SQ ONE (09:13)
[2017-12-17] MEDS ORDERED: IODIXANOL 320 MG/ML 100 ML IV ONE (09:23)
[2017-12-17] MEDS ORDERED: ATROPINE SULFATE 0.1 MG/ML 10ML SYRINGE ONE (10:18)
[2017-12-17] MEDS ORDERED: ACETAMINOPHEN IV (For NPO) 1,000 MG in EMPTY BAG 1 BAG IVPB ONE (11:12)
[2017-12-17] MEDS ORDERED: ACETAMINOPHEN TAB 325 MG TAB PO PRN (11:12)
[2017-12-17] MEDS ORDERED: HYDROcodone/APAP 5-325MG 1 EACH TAB PO PRN (11:12)
[2017-12-17] MEDS ORDERED: ACETAMINOPHEN IV (For NPO) 1,000 MG/100 ML VIAL IVPB ONE (11:33)
--- NOTE | 2017-12-17 12:39 | CE ---
CARDIAC ELECTROPHYSIOLOGY REPORT Mrs. Pérez is a 77-year-old female with severe heart failure despite appropriate medical treatment. She has underlying nonischemic cardiomyopathy with class 3 CHF and a wide QRS of left bundle branch block pattern, QRS width of 154 milliseconds and has progressive heart failure symptoms. She has mild coronary artery disease, nonobstructive. Her cardiomyopathy is predominantly nonischemic. A biventricular ICD was recommended for management of heart failure and primary prevention of sudden cardiac . Patient was brought to the EP lab in a fasting state. Written informed consent was obtained prior to the procedure. The left shoulder area was prepped and draped as per protocol and 1% lidocaine was used for local anesthesia. A 4 cm incision was made parallel to the deltopectoral groove, about 1.5 cm medial to the deltopectoral groove and carried down to the level of the muscle. The subfascial pocket was made. Hemostasis was assured. The left axillary vein was accessed at 3 separate points and via appropriately-sized introducer sheath, 3 leads were positioned. The right atrial lead was a [employer] Passive lead 52 cm, model #[id number], serial #[id number]. P waves 5.5 millivolts, pacing impedance 576 ohms, pacing threshold 0.7 V at 0.5 milliseconds. A 10 V test was negative. The LV lead was positioned in the anterior lateral coronary vein. After coronary sinus venography during access, a small dissection was noted in the main body of the coronary sinus, but without any clinical consequences and the rest of the case proceeded smoothly. At the end of the procedure, there was no pericardial effusion on 2D echo. The LV lead was positioned in the anterolateral vein. The electrode position was very lateral and very stable. R waves 8.5 millivolts, pacing impedance 440 ohms, pacing threshold 1 V at 0.5 milliseconds. The second LV pole (LV2) showed diaphragmatic stimulation, but the distal as well as the more proximal poles did not show any diaphragmatic stimulation threshold. The ICD lead was positioned in the low RV septum just above the apex. R-waves 22.4 millivolts, pacing impedance 696 ohms, pacing threshold 0.4 V at 0.5 milliseconds. The 10 V test was negative. All leads secured to the underlying pectoralis fascia using 2 nonabsorbable sutures. Pocket was irrigated with antibiotic solution. Leads were connected to the generator ([employer]'s [employer] model #CR7991-38T, serial #[id number]. The lead and generator were then placed in subfascial pocket and the wound was closed in 3 layers and dressed per protocol. The generator was secured to the pectoralis muscle. The MADIT-RIT was programmed. A short AV delay was programmed. Initially multisite pacing was programmed with LV4 followed by LV2, followed by RV coil, but with diaphragmatic stimulation even at low thresholds at low voltage, single site pacing in the LV was performed at the most proximal pole of LV4. Patient tolerated the procedure well without any acute complications. PLAN: Continue current medications and maximize medical treatment. MMODL / IJN: [id number] /
[2017-12-17] MEDS: LACTATED RINGERS 1,000 ML IV SCH (12:44)
[2017-12-17] MEDS: FUROSEMIDE 40 MG TAB PO SCH (13:18)
[2017-12-17] MEDS: ATORVASTATIN 40 MG TAB PO SCH (13:18)
[2017-12-17] MEDS: LOSARTAN 25 MG TAB PO SCH (13:18)
[2017-12-17] MEDS: LEVOTHYROXINE 137 MCG TAB PO SCH (13:19)
[2017-12-17] MEDS: SPIRONOLACTONE 25 MG TAB PO SCH (13:19)
[2017-12-17] MEDS: CLINDAMYCIN 900 MG in DEXTROSE 5% IN WATER 50 ML IVPB SCH ×4 (15:15→21:04)
[2017-12-17] MEDS ORDERED: MAG HYDROX/AL HYDROX/SIMETH 30 ML, HYOSCYAMINE ELIXIR 10 ML, CIMETIDINE HCL 300 MG PO ONE ×3 (17:44)
[2017-12-17 18:07] LABS: Glucose,Whole Blood 104 mg/dL (75-99)
[2017-12-17] MEDS ORDERED: SODIUM CHLORIDE 0.9% 250 ML IV ONE (18:17)
[2017-12-17 18:27] LABS: HCT 36.6 % (34.0-46.0); HGB 10.9 gm/dL (11.4-16.0); Hypochromasia Moderate; MCH 26.9 pg (25.0-35.0); MCHC 29.9 g/dL (31.0-37.0); Mean Platelet Volume 6.9; Platelet Count 237 k/uL (150-450); RBC 4.06 m/uL (3.80-5.40); RDW 14.5 % (11.5-15.5); WBC 6.6 k/uL (3.8-10.6)
[2017-12-17] MEDS: CARVEDILOL 3.125 MG TAB PO SCH (18:32)
[2017-12-17] MEDS ORDERED: ONDANSETRON 4 MG/2 ML VIAL IVP PRN (19:03)
[2017-12-17] MEDS: FAMOTIDINE 20 MG/2 ML VIAL IV SCH (19:08)
[2017-12-17 19:16] LABS: Anion Gap 8 mmol/L; Blood Urea Nitrogen 14 mg/dL (7-17); Calcium 8.1 mg/dL (8.4-10.2); Carbon Dioxide 23 mmol/L (22-30); Chloride 103 mmol/L (98-107); Glucose 106 mg/dL (74-99); Potassium 3.6 mmol/L (3.5-5.1); Sodium 134 mmol/L (137-145)
[2017-12-18] MEDS: CLINDAMYCIN 900 MG in DEXTROSE 5% IN WATER 50 ML IVPB SCH ×4 (03:17→08:37)
[2017-12-18 04:17] LABS: HCT 34.2 % (34.0-46.0); HGB 10.6 gm/dL (11.4-16.0); MCH 27.1 pg (25.0-35.0); MCV 87.4 fL (80.0-100.0); Mean Platelet Volume 6.9; Platelet Count 225 k/uL (150-450); RBC 3.91 m/uL (3.80-5.40); RDW 14.7 % (11.5-15.5)
[2017-12-18 04:33] LABS: Anion Gap 8 mmol/L; Blood Urea Nitrogen 10 mg/dL (7-17); Calcium 8.5 mg/dL (8.4-10.2); Carbon Dioxide 25 mmol/L (22-30); Chloride 100 mmol/L (98-107); Glucose 99 mg/dL (74-99); Potassium 3.4 mmol/L (3.5-5.1); Sodium 133 mmol/L (137-145)
[2017-12-18 05:58] LABS: Phosphorus 4.1 mg/dL (2.5-4.5)
[2017-12-18] MEDS ORDERED: POTASSIUM CHLORIDE ER 20 MEQ TAB.ER PO SCH (06:00)
[2017-12-18] MEDS: LACTATED RINGERS 1,000 ML IV SCH (06:10)
[2017-12-18] MEDS: LEVOTHYROXINE 137 MCG TAB PO SCH (06:34)
[2017-12-18] MEDS: SODIUM CHLORIDE 0.9% 1,000 ML IV SCH (06:34)
[2017-12-18] MEDS: CARVEDILOL 3.125 MG TAB PO SCH (06:34)
--- NOTE | 2017-12-18 07:02 | XR ---
EXAMINATION TYPE: XR chest 2V DATE OF EXAM: 12/18/2017 COMPARISON: Chest x-ray August 16, 2017 HISTORY: Post pacemaker insertion. TECHNIQUE: Frontal and lateral views of the chest are obtained. FINDINGS: There is chronic parenchymal change without new suspicious focal air space opacity, pleura l effusion, or pneumothorax seen. The cardiac silhouette size remains enlarged with atherosclerotic aorta. There is new triple lead pacemaker/AICD with leads appropriately positioned in right atrium, r ight ventricle, and coronary sinus. Advanced degenerative changes bilateral glenohumeral joints are r edemonstrated. IMPRESSION: New triple lead pacemaker/AICD with satisfactory positioning of leads. No evidence of co mplication related to pacemaker insertion procedure.
--- NOTE | 2017-12-18 08:13 | P.DS ---
Providers Attending physician: Buzz Chapin Primary care physician: [facility] Course: Yesterday patient is doing well but after receiving [place] she started experiencing severe epigastric discomfort him very nauseous and vomited and was hypotensive pale and sweaty 2-D echo performed did not show any pericardial effusion. She did not have any JVD either it hemoglobin was about 11 g/dL. Troponin was 0.18. Twelve-lead ECG showed biventricular paced rhythm with a sensed V paced rhythm. She was treated with IV fluids and then subsequently given a GI cocktail and IV Pepcid. Repeat troponin was 0.075, repeat hemoglobin was stable Today this morning she has absolutely no epigastric discomfort. After 7:30 PM last night she has not had any problems. Blood pressure was stable all along. She denies any chest discomfort epigastric discomfort undue shortness of breath palpitations Blood pressures in the normal range, 137/69 mmHg respirations are normal at 16/ m she looks very comfortable no respiratory distress pulse rate in the 70s afebrile 98.2F Breath sounds are clear no rhonchi no crackles Heart sounds. Soft murmur, rub No hematoma over the ICD site Abdomen soft nontender no epigastric tenderness Patient is a warm no edema Impression Severe nonischemic cardio myopathy status post biventricular ICD, chronic congestive heart failure class III despite medical treatment and an underlying left bundle-branch block with QRS width of 154 ms Status post biventricular ICD Likely vagal response yesterday with epigastric discomfort and nausea and sweating, pallor, hypotension, that responded to IV atropine and GI cocktail and IV Pepcid. Suggest Up in a chair, ambulate on the floor, discharged home after lunch if stable and follow-up with device clinic next week on Saturday follow-up with Dr. Garcia in 2 weeks Patient Condition at Discharge: Stable Plan - Discharge Summary Discharge Rx Participant: No New Discharge Prescriptions: New Aspirin EC [Ecotrin Low Dose] 81 mg PO DAILY #90 tablet. Discontinued Aspirin 325 mg PO DAILY Vit A/Vit C/Vit E/Zinc/Copper [ICAPS SOFTGEL] 1 cap PO BID-W/MEALS@,18 No Action Levothyroxine Sodium [Synthroid] 137 mcg PO DAILY Atorvastatin [Lipitor] 40 mg PO DAILY Spironolactone [Aldactone] 25 mg PO DAILY #30 tab Furosemide [Lasix] 40 mg PO DAILY #30 tab Carvedilol [Coreg] 3.125 mg PO BID-W/MEALS #60 tab Losartan [Cozaar] 25 mg PO DAILY #0 Discharge Medication List Atorvastatin [Lipitor] 40 mg PO DAILY 01/23/15 [History] Levothyroxine Sodium [Synthroid] 137 mcg PO DAILY 01/23/15 [History] Carvedilol [Coreg] 3.125 mg PO BID-W/MEALS #60 tab 08/16/17 [Rx] Furosemide [Lasix] 40 mg PO DAILY #30 tab 08/16/17 [Rx] Losartan [Cozaar] 25 mg PO DAILY #0 08/16/17 [Rx] Spironolactone [Aldactone] 25 mg PO DAILY #30 tab 08/16/17 [Rx] Aspirin EC [Ecotrin Low Dose] 81 mg PO DAILY #90 tablet. 12/17/17 [Rx] Follow up Appointment(s)/Referral(s): Jazmyne Leger MD [STAFF PHYSICIAN] - 6 Weeks Activity/Diet/Wound Care/Special Instructions: PATIENT EDUCATION MATERIAL Instructions following a heart rhythm device implant. 1. Keep dressing DRY for 5 DAYS. You may cover the area with Saran or Cling Wrap, prior to a shower. 2. The dressing will be removed in the Device Clinic @ [facility]. Absorbable sutures were used to close the wound. 3. Avoid raising the [left] arm above the shoulder level. [4 week restriction] 4. Avoid arm movements, like backscratching, rubbing the head, or pulling on a cord. (4 weeks restriction) 5. Gentle range of motion movements of the shoulder, closest to the incision should be performed to avoid a frozen shoulder. (Pendulum exercises of the shoulder) 6. The opposite arm may be used freely. 7. Avoid driving for 7 days. 8. Avoid activities such as golfing, swimming, weed whacking, lifting more than 10 pounds weight, bowling, gymnastics and weight training/lifting. (6 weeks restriction) 9. Activities such as wood chopping with an axe, pull-ups in the gymnasium, power lifting, arc-welding, being close to home induction cooktops will always be a problem. 10. Arm sling is a mere reminder not to raise the arm above the head. However you do not need to keep the arm completely immobilized. Your free to move the arm and use it and for normal activities. In case of any problems, please call [facility], [place], @ [phone], Attention: Device Clinic Device clinic follow-up in 5 days Follow-up with Dr. Leger in 6 weeks Discharge Disposition: HOME SELF-CARE
--- NOTE | 2017-12-18 08:13 | P.DS ---
Providers Attending physician: Buzz Chapin Primary care physician: Johanne Keith [facility] Course: Impression Severe nonischemic cardio myopathy Class III CHF, chronic, systolic Failed guideline directed medical treatment Left bundle branch block wide QRS 154 ms Mild nonobstructive CAD Underwent successful biventricular ICD implantation with LV lead in the anterolateral vein Plan Continue heart failure medications Follow-up with Dr. Leger and Dr. Keith Follow up in the device clinic in 5 days Plan - Discharge Summary Discharge Rx Participant: No New Discharge Prescriptions: New Aspirin EC [Ecotrin Low Dose] 81 mg PO DAILY #90 tablet.dr Discontinued Aspirin 325 mg PO DAILY Vit A/Vit C/Vit E/Zinc/Copper [ICAPS SOFTGEL] 1 cap PO BID-W/MEALS@ No Action Levothyroxine Sodium [Synthroid] 137 mcg PO DAILY Atorvastatin [Lipitor] 40 mg PO DAILY Spironolactone [Aldactone] 25 mg PO DAILY #30 tab Furosemide [Lasix] 40 mg PO DAILY #30 tab Carvedilol [Coreg] 3.125 mg PO BID-W/MEALS #60 tab Losartan [Cozaar] 25 mg PO DAILY #0 Discharge Medication List Atorvastatin [Lipitor] 40 mg PO DAILY 01/23/15 [History] Levothyroxine Sodium [Synthroid] 137 mcg PO DAILY 01/23/15 [History] Carvedilol [Coreg] 3.125 mg PO BID-W/MEALS #60 tab 08/16/17 [Rx] Furosemide [Lasix] 40 mg PO DAILY #30 tab 08/16/17 [Rx] Losartan [Cozaar] 25 mg PO DAILY #0 08/16/17 [Rx] Spironolactone [Aldactone] 25 mg PO DAILY #30 tab 08/16/17 [Rx] Aspirin EC [Ecotrin Low Dose] 81 mg PO DAILY #90 tablet. 12/17/17 [Rx] Follow up Appointment(s)/Referral(s): Jazmyne Leger MD [STAFF PHYSICIAN] - 6 Weeks Activity/Diet/Wound Care/Special Instructions: PATIENT EDUCATION MATERIAL Instructions following a heart rhythm device implant. 1. Keep dressing DRY for 5 DAYS. You may cover the area with Saran or Cling Wrap, prior to a shower. 2. The dressing will be removed in the Device Clinic @ [facility]. Absorbable sutures were used to close the wound. 3. Avoid raising the [left] arm above the shoulder level. [4 week restriction] 4. Avoid arm movements, like backscratching, rubbing the head, or pulling on a cord. (4 weeks restriction) 5. Gentle range of motion movements of the shoulder, closest to the incision should be performed to avoid a frozen shoulder. (Pendulum exercises of the shoulder) 6. The opposite arm may be used freely. 7. Avoid driving for 7 days. 8. Avoid activities such as golfing, swimming, weed whacking, lifting more than 10 pounds weight, bowling, gymnastics and weight training/lifting. (6 weeks restriction) 9. Activities such as wood chopping with an axe, pull-ups in the gymnasium, power lifting, arc-welding, being close to home induction cooktops will always be a problem. 10. Arm sling is a mere reminder not to raise the arm above the head. However you do not need to keep the arm completely immobilized. Your free to move the arm and use it and for normal activities. In case of any problems, please call [facility], [place], @ [phone], Attention: Device Clinic Device clinic follow-up in 5 days Follow-up with Dr. Leger in 6 weeks Discharge Disposition: HOME SELF-CARE
[2017-12-18] MEDS: FAMOTIDINE 20 MG/2 ML VIAL IV SCH (08:38)
[2017-12-18] MEDS ORDERED: SPIRONOLACTONE 25 MG TAB PO SCH (09:00)
[2017-12-18] MEDS ORDERED: LEVOTHYROXINE 137 MCG TAB PO SCH (09:00)
[2017-12-18] MEDS ORDERED: FUROSEMIDE 40 MG TAB PO SCH (09:00)
[2017-12-18] MEDS ORDERED: LOSARTAN 25 MG TAB PO SCH (09:00)
[2017-12-18] MEDS ORDERED: ATORVASTATIN 40 MG TAB PO SCH (09:00)
[2017-12-18] MEDS: SPIRONOLACTONE 25 MG TAB PO SCH (09:01)
[2017-12-18] MEDS: FUROSEMIDE 40 MG TAB PO SCH (09:02)
[2017-12-18] MEDS: ATORVASTATIN 40 MG TAB PO SCH (09:02)
[2017-12-18] MEDS: LOSARTAN 25 MG TAB PO SCH (12:02)
[2017-12-18 12:14] VITALS: TEMP 97.6
[2017-12-18 13:23] VITALS: BP 127/86; PULSE 91; RESP 22
--- NOTE | 2017-12-18 14:53 | ECHOF ---
Referral Reason:hypotension MEASUREMENTS -------- HEIGHT: 0.0 cm WEIGHT: 0.0 kg BP: FINDINGS -------- Resting bradycardia (HR<60bpm). Limited Study for assessment of pericardial effusion. There is a trivial pericardial effusion present. CONCLUSIONS -------- 1. Resting bradycardia (HR<60bpm). 2. Limited Study for assessment of pericardial effusion. 3. There is a trivial pericardial effusion present. NUCLEAR PLANT INSTRUMENT TECHNICIAN: Vinayak Vaz RDCS
--- NOTE | 2017-12-25 11:52 | ECHOF ---
Referral Reason:pericardial effusion MEASUREMENTS -------- HEIGHT: 154.9 cm WEIGHT: 77.1 kg BP: RAP: 5.00 mmHg RVSP: 19.60 mmHg FINDINGS -------- Limited Study Overall left ventricular systolic function is severely impaired with, an EF between 20 - 25 %. Mild mitral regurgitation is present. Mild tricuspid regurgitation present. There is no pericardial effusion. CONCLUSIONS -------- 1. Limited Study 2. Overall left ventricular systolic function is severely impaired with, an EF between 20 - 25 %. 3. Mild mitral regurgitation is present. 4. Mild tricuspid regurgitation present. 5. There is no pericardial effusion. INSPECTOR LINE: Taryn Soria RDCS
== END 2017-12-18 13:43 | disposition home or self-care (01) ==
LOC: CATHEP 05:49 → 3OBS 13:21 → 6ICU 17:53 → CATHEP 12-18 13:43
PROVIDERS: ATTEND Internal Medicine Clinical Cardiac Electrophysiology
DX: I42.8 Other cardiomyopathies (principal); I25.10 Atherosclerotic heart disease of native coronary artery without angina pectoris; I11.0 Hypertensive heart disease with heart failure; I50.22 Chronic systolic (congestive) heart failure; Z00.6 Encounter for examination for normal comparison and control in clinical research program; I31.3 Pericardial effusion (noninflammatory); Z87.891 Personal history of nicotine dependence; I44.7 Left bundle-branch block, unspecified; R00.1 Bradycardia, unspecified; E78.5 Hyperlipidemia, unspecified; E07.9 Disorder of thyroid, unspecified; E87.5 Hyperkalemia; Z79.82 Long term (current) use of aspirin; Z79.899 Other long term (current) drug therapy; Z88.0 Allergy status to penicillin; Z88.8 Allergy status to other drugs, medicaments and biological substances
CPT/HCPCS: 93308 ×2; 33225; 33249; 80048 ×2; 83735; 84100; 84484 ×2; 85027 ×2; 71046; C1769 ×3; C1892 ×2; C1730; C1900; C1898; C1777; C1882; J2250; Q9967; J2405; J2001; J3010; J0131; J2704

== ENCOUNTER → 2018-04-15 | Day surgery (SDC) | payer MEDICARE, BC ==
[2018-04-09 13:24] VITALS: BMI 32.1
[~2018-04-15] MED LIST changes: -ALPRAZolam 0.25 MG TAB PO PRN; -ALPRAZolam 0.5 MG TAB PO PRN; -ASPIRIN 325 MG TAB PO STA; +LACTATED RINGERS 1,000 ML IV SCH; +LIDOCAINE 1% 20 ML VIAL (10MG/ML) FOR IV START INTRADERMA PRN; +MIDAZOLAM 2 MG/2 ML VIAL IV PRN; -NITROGLYCERIN SL TABS 0.4 MG TAB SUBLINGUAL PRN; +SODIUM CHLORIDE 0.9% 1,000 ML IV SCH; -SODIUM CHLORIDE 0.9% 1,000 ML in EMPTY BAG 1 BAG IV ONE
[2018-04-15 08:09] VITALS: TEMP 97.6
--- NOTE | 2018-04-15 09:56 | CE ---
CARDIAC ELECTROPHYSIOLOGY REPORT Whit Pérez is a 77-year-old female who has a bi-V ICD implanted several months back. She was brought in for ICD testing under anesthesia. She has congestive heart failure and cardiomyopathy with left bundle branch block. She has a [employer] Quadra [employer]ura MP model #3369-40Q [employer]. P waves greater than 5 mV, pacing threshold 2.75 V at 1 millisecond and a pacing impedance of 550 ohms. RV pacing threshold 1 V at 0.5 milliseconds. R-waves 11.6 mV and pacing impedance 480 ohms. The LV pacing threshold 1.25 V at 0.5 milliseconds. Proximal 4 RV coil. Pacing impedance 610 ohms. High-voltage impedance 69 ohms. DFT testing was performed. DC shock was used to induce ventricular fibrillation. This was adequately and appropriately detected at least sensitivity and successfully internally defibrillated without any dropouts. Charge time was 1.5 seconds. Shock impedance 69 ohms. No post shock noise. She was successfully defibrillated at 20 joules. Please note 10 joule was unsuccessful. Charge time was 1.5 seconds. Shock impedance 69 ohms. No dropouts. No post shock noise. The device was then programmed according to the [facility] RIT protocol with appropriate antitachycardia pacing, cardioversion, defibrillation and long detection intervals. First cardioversion at 20 joules. First defibrillation at max output. The patient tolerated the procedure well without any acute complications. MMODL / IJN: [id number] /
[2018-04-15 10:18] VITALS: PULSE 70; RESP 18
[2018-04-15 10:19] VITALS: BP 140/68
== END ==
LOC: CATHEP 07:49
PROVIDERS: ATTEND Internal Medicine Clinical Cardiac Electrophysiology
DX: Z45.02 Encounter for adjustment and management of automatic implantable cardiac defibrillator (principal); I11.0 Hypertensive heart disease with heart failure; I50.22 Chronic systolic (congestive) heart failure; I42.9 Cardiomyopathy, unspecified; I25.10 Atherosclerotic heart disease of native coronary artery without angina pectoris; I44.7 Left bundle-branch block, unspecified; E78.00 Pure hypercholesterolemia, unspecified; E07.9 Disorder of thyroid, unspecified; H26.9 Unspecified cataract; Z79.82 Long term (current) use of aspirin; Z79.890 Hormone replacement therapy; Z79.899 Other long term (current) drug therapy; Z88.0 Allergy status to penicillin; Z88.8 Allergy status to other drugs, medicaments and biological substances; Z88.5 Allergy status to narcotic agent; Z87.891 Personal history of nicotine dependence
CPT/HCPCS: 93642